=== PATIENT | female | born 1965 | race Caucasian/White ===

== ENCOUNTER 2017-03-05 06:37 | Day surgery (SDC) | payer BC ==
[2017-03-05 06:57] VITALS: BMI 38.0
[2017-03-05] MEDS ORDERED: Midazolam 2 MG/2 ML VIAL ONE (07:55)
[2017-03-05] MEDS ORDERED: Propofol 10 mg/ml Inj (20 ML) ONE (07:55)
[2017-03-05] MEDS ORDERED: Ketamine 50 mg/ml Inj (10 ml) ONE (07:56)
--- NOTE | 2017-03-05 08:06 | CP.SDSHP ---
Same Day Surgery H & P - History Proposed Procedure: EGD/EUS Pre-Op Diagnosis: Abdominal pain. CBD dilation - Previous Medical/Surgical History Previous Surgical History: ercp - Allergies Allergies: Allergies No Known Allergies Allergy (Verified 03/05/17 06:56) - Physical Exam General Appearance: nl Vital Signs: Vital Signs 03/05/17 06:57 Temperature 97.3 F L Pulse Rate 71 Respiratory 19 Rate Blood Pressure 139/78 O2 Sat by Pulse 97 Oximetry Mental Status: Alert & Oriented x3 Neuro: WNL Heart: WNL Lungs: WNL GI: WNL - {Optional Preform as Required} Abdomen: WNL - Impression Impression: cbd dilation Pt. Evaluated Today:Candidate for Anesthesia & Procedure: Yes - Date & Time Date: 03/05/17 Time: 08:06 Short Stay Discharge - Short Stay Discharge Admitting Diagnosis/Reason for Visit: COMMON BILE DUCT STRICTURE Disposition: HOME/ ROUTINE Referrals: Gabino Varghese [Primary Care Provider] -
[2017-03-05] MEDS ORDERED: Lactated Ringer's 500 ML IV SCH (08:15)
[2017-03-05 09:12] VITALS: TEMP 97.5
[2017-03-05 09:38] VITALS: O2SAT 100
[2017-03-05 09:47] VITALS: BP 113/77; PULSE 66; RESP 14
== END 2017-03-05 10:20 | disposition home or self-care (01) ==
LOC: C.ENDO 06:37
PROVIDERS: ATTEND Internal Medicine
DX: K83.1 Obstruction of bile duct (principal); K83.8 Other specified diseases of biliary tract; Z87.19 Personal history of other diseases of the digestive system
CPT/HCPCS: 43239; 84703; 88305; 88313; 88342; J2250; J2704; J7120